=== PATIENT | male | born 1955 | race Caucasian/White ===

== ENCOUNTER 2021-04-24 19:24 | Inpatient (IN) | payer BC, SELFPAY ==
--- NOTE | ~2021-04-24 | MR_ITS ---
EXAMINATION: MR FOOT WITH AND WITHOUT CONTRAST, RIGHT CLINICAL INFORMATION: Nonhealing wound. COMPARISON: Radiographs dated 04/25/2021. TECHNIQUE: Multiplanar MR imaging was obtained through the right forefoot on a 1.5 Pratibha magnet before and after intravenous administration of 10 mL Gadavist. FINDINGS: There is a 1.7 x 1.7 cm skin wound at the plantar/medial margin of the great toe distal phalanx with surrounding soft tissue edema and enhancement. A peripherally enhancing tract extends from the wounds to the level of the medial margin of the great toe distal phalangeal base (image 33/40 of series 10). No peripherally enhancing collections in this region. There is intense underlying marrow edema signal within the distal phalanx with associated marrow enhancement. There is focal loss of normal T1 signal in the plantar/medial margin of the distal phalangeal base (image 33/40 of series 8), consistent with osteomyelitis. There is a transverse fracture at the second toe middle phalanx which is likely [id number] in nature given the edema signal at the margins. No additional fractures are identified. There is a bipartite medial hallux sesamoid with degenerated margins and mild associated edema signal. Mild osteoarthritis in the first MTP joint. Mild osteoarthritis is present within the tarsometatarsal joints. Marrow signal in the forefoot is otherwise unremarkable. There is fatty atrophy and increased signal within the foot musculature, consistent with chronic changes of denervation atrophy related to underlying diabetes. Tendons are intact without tears, tendinosis, or tenosynovitis. Plantar fascia is unremarkable. MR/MR foot RT wo/w con IMPRESSION: 1. Great toe skin wound with underlying osteomyelitis at the great toe distal phalanx. No abscess. 2. [id number] fracture of the second toe middle phalanx.
--- NOTE | ~2021-04-24 | XR_ITS ---
EXAMINATION: XR FOOT, RIGHT CLINICAL INFORMATION: Question osteomyelitis due to ulcer of the right great toe. COMPARISON: None TECHNIQUE: AP, lateral, and oblique views of the right foot. FINDINGS: Soft tissue ulceration along the medial aspect of the first digit. No underlying osseous erosion. There is an oblique fracture of the second digit middle phalanx with intra-articular extension. Mild soft tissue swelling throughout the foot. Small heel spurs. Vascular calcifications. XR/XR foot RT min 3V IMPRESSION: First digit ulcer with no underlying osseous erosion. Fracture of the second digit middle phalanx. This is of uncertain acuity.
[2021-04-24 19:35] VITALS: BP 171/95; PULSE 105; RESP 16; TEMP 37.2; O2SAT 96; BMI 31.8
--- NOTE | 2021-04-25 00:27 | ED_ITS ---
HPI - Wound/Laceration General Chief Complaint: Wound/Laceration Stated Complaint: toe ulcer Time Seen by Provider: 04/24/21 23:06 Source: patient Mode of arrival: ambulatory History of Present Illness HPI narrative: 65-year-old male with hypertension and diabetes presents after being referred by Dr. Valdovinos for nonhealing pressure ulcer to the right great toe and given likely osteomyelitis with patient reported swelling, pain, redness up into the base of the great toe. He otherwise denies any fever, chills and is COVID-19 vaccinated. Related Data Allergies Allergy/AdvReac Type Severity Reaction Status Date / Time No Known Allergies Allergy Verified 04/24/21 23:06 Review of Systems Review of Systems: Pertinent positives and negatives as stated in HPI 10 point review of systems is otherwise negative. [facility] Past Medical History Source: nursing notes reviewed Medical History Diabetes Hypertension Social History Social History Advance Directives: No Advance Directives Information Provided: No Physical Exam Vital Signs: Vital Signs: Last Vital Signs Temp 98.9 F 04/25/21 06:13 Pulse 68 04/25/21 06:13 Resp 16 04/25/21 06:13 BP 158/62 H 04/25/21 06:13 Pulse Ox 97 04/25/21 06:13 BMI result Body Mass Index 31.8 VITAL SIGNS: Reviewed. GENERAL: Well developed, well nourished, in no acute distress. HEAD: Normocephalic/atraumatic EYES: PERRLA, EOMI OROPHARYNX: no oral lesions noted, posterior pharynx clear NECK: Supple, no adenopathy LUNGS: Normal breath sounds. No adventitious sounds or accessory muscle use. SpO2<96> CARDIOVASCULAR: Regular rate and rhythm without noted murmurs, no JVD or lower extremity edema. ABDOMEN: Soft, non-tender, non-distended with bowel sounds. RIGHT GREAT TOE: Noted 2 cm ulceration, to the bone at the plantar aspect without purulence drainage but surrounding erythema, swelling that extends into the MTP NEUROLOGIC: Alert and oriented x 4. Strength and sensation to light touch were grossly intact x 4. Course Course Course Narrative: 65-year-old male with history and clinical presentation by clinical diagnosis of all when given depth of wound. Patient will get labs, inflammatory markers, antibiotics, COVID testing as well as an x-ray. Case discussed briefly with inpatient hospitalist. Patient received basic labs, x- ray, ESR, CRP, antibiotics. On review of all investigations CRP is elevated, no acute findings on x-ray, but wound is deep to bone, patient was provided with antibiotics and this case was discussed with inpatient hospitalist who accepts admission. MDM - Wound/Laceration Lab Data Result diagrams: 04/24/21 01:51 04/25/21 01:51 Labs: Lab Results 04/24/21 04/25/21 04/25/21 Range/Units 01:51 01:51 01:51 WBC 7.9 (4.8-10.8) X10*3/uL RBC 5.53 (4.60-5.80) X10*6/uL Hgb 15.4 (14.0-18.0) g/dl Hct 46.5 (42.0-52.0) % MCV 84.1 (80.0-98.0) fL MCH 27.8 (27.0-33.0) pg MCHC 33.1 (31.0-36.0) g/dl RDW 13.0 (11.0-16.0) % Plt Count 198 (160-400) X10*3/uL MPV 11.2 (9.4-12.4) fL Immature Gran % (Auto) 0.5 H (0.0-0.4) % Neut % (Auto) 70.0 (45-73) % Lymph % (Auto) 16.6 L (20-40) % [place] % (Auto) 8.2 (2-11) % Eos % (Auto) 4.1 H (0-4) % Baso % (Auto) 0.6 (0-2) % Lymph # (Auto) 1.3 (1.2-4.9) X10*3/uL [place] # (Auto) 0.7 (0.1-1.2) X10*3/uL Eos # (Auto) 0.3 (0.0-0.4) X10*3/uL Baso # (Auto) 0.1 (0.0-0.2) X10*3/uL Abs Immat Gran (auto) 0.04 H (0.00-0.03) X10*3/uL Absolute Neuts (auto) 5.5 (2.0-8.3) x10*3/uL Absolute Nucleated RBC 0.000 (0.0-0.012) X10*3/uL Nucleated RBC % (auto) 0.0 (0.0-0.2) /100WBC ESR (0-15) MM/HR Sodium 138 (135-145) mmol/L Potassium 4.3 (3.3-5.1) mmol/L Chloride 103 (96-108) mmol/L Carbon Dioxide 23 (22-29) mmol/L Anion Gap 16 (12-20) BUN 10 (9-16) mg/dL Creatinine 0.79 (0.5-1.4) mg/dL Estim Creat Clear Calc 127.8 Estimated GFR > 60 Random Glucose 189 H (60-115) mg/dL Lactic Acid 0.8 (0.5-2.0) mmol/L Calcium 9.9 (8.4-10.2) mg/dL Total Bilirubin 0.8 (0.0-1.0) mg/dL AST 13 (5-37) U/L ALT 18 (0-40) U/L Alkaline Phosphatase 137 H (39-117) U/L C-Reactive Protein 1.23 H (< or = 0.50) mg/dL Total Protein 7.5 (6.5-8.0) g/dL Albumin 4.6 (3.5-5.0) g/dL COVID-19 (LIZ) (Negative) COVID-19 Clin Com 04/25/21 04/25/21 Range/Units 01:51 01:54 WBC (4.8-10.8) X10*3/uL RBC (4.60-5.80) X10*6/uL Hgb (14.0-18.0) g/dl Hct (42.0-52.0) % MCV (80.0-98.0) fL MCH (27.0-33.0) pg MCHC (31.0-36.0) g/dl RDW (11.0-16.0) % Plt Count (160-400) X10*3/uL MPV (9.4-12.4) fL Immature Gran % (Auto) (0.0-0.4) % Neut % (Auto) (45-73) % Lymph % (Auto) (20-40) % [place] % (Auto) (2-11) % Eos % (Auto) (0-4) % Baso % (Auto) (0-2) % Lymph # (Auto) (1.2-4.9) X10*3/uL [place] # (Auto) (0.1-1.2) X10*3/uL Eos # (Auto) (0.0-0.4) X10*3/uL Baso # (Auto) (0.0-0.2) X10*3/uL Abs Immat Gran (auto) (0.00-0.03) X10*3/uL Absolute Neuts (auto) (2.0-8.3) x10*3/uL Absolute Nucleated RBC (0.0-0.012) X10*3/uL Nucleated RBC % (auto) (0.0-0.2) /100WBC ESR 12 (0-15) MM/HR Sodium (135-145) mmol/L Potassium (3.3-5.1) mmol/L Chloride (96-108) mmol/L Carbon Dioxide (22-29) mmol/L Anion Gap (12-20) BUN (9-16) mg/dL Creatinine (0.5-1.4) mg/dL Estim Creat Clear Calc Estimated GFR Random Glucose (60-115) mg/dL Lactic Acid (0.5-2.0) mmol/L Calcium (8.4-10.2) mg/dL Total Bilirubin (0.0-1.0) mg/dL AST (5-37) U/L ALT (0-40) U/L Alkaline Phosphatase (39-117) U/L C-Reactive Protein (< or = 0.50) mg/dL Total Protein (6.5-8.0) g/dL Albumin (3.5-5.0) g/dL COVID-19 (LIZ) Negative (Negative) COVID-19 Clin Com See Note Discharge Plan Discharge Clinical Impression: Osteomyelitis of great toe of right foot Patient Disposition: Admitted As Inpatient
[2021-04-25 05:40] LABS: Alanine Aminotransferase 18 U/L (0-40); Albumin Level 4.6 g/dL (3.5-5.0); Alkaline Phosphatase 137 U/L (39-117); Anion Gap 16 (12-20); Aspartate Amino Transferase 13 U/L (5-37); Bilirubin Total 0.8 mg/dL (0.0-1.0); Blood Urea Nitrogen 10 mg/dL (9-16); C Reactive Protein 1.23 mg/dL (< or = 0.50); Calcium 9.9 mg/dL (8.4-10.2); Carbon Dioxide 23 mmol/L (22-29); Chloride 103 mmol/L (96-108); Creatinine Clr Calc Pharmacy 127.8; Estimated Glomerular Filt Rate > 60; Glucose Random 189 mg/dL (60-115); Lactic Acid 0.8 mmol/L (0.5-2.0); Potassium 4.3 mmol/L (3.3-5.1); Sodium 138 mmol/L (135-145); Total Protein 7.5 g/dL (6.5-8.0)
[2021-04-25 05:40] LABS: Basophils Absolute Auto 0.1 X10*3/uL (0.0-0.2); Basophils Percent Auto 0.6 % (0-2); Eosinophils Absolute Auto 0.3 X10*3/uL (0.0-0.4); Eosinophils Percent Auto 4.1 % (0-4); Hematocrit 46.5 % (42.0-52.0); Hemoglobin 15.4 g/dl (14.0-18.0); Imm Gran Abs Auto 0.04 X10*3/uL (0.00-0.03); Imm Gran Pct Auto 0.5 % (0.0-0.4); Lymphocytes Absolute Auto 1.3 X10*3/uL (1.2-4.9); Lymphocytes Percent Auto 16.6 % (20-40); MANUAL DIFF FLAG NO; Mean Corpuscular HGB Conc 33.1 g/dl (31.0-36.0); Mean Corpuscular Hemoglobin 27.8 pg (27.0-33.0); Mean Corpuscular Volume 84.1 fL (80.0-98.0); Mean Platelet Volume 11.2 fL (9.4-12.4); Monocytes Absolute Auto 0.7 X10*3/uL (0.1-1.2); Monocytes Percent Auto 8.2 % (2-11); Neutrophils Absolute Auto 5.5 x10*3/uL (2.0-8.3); Platelet Count 198 X10*3/uL (160-400); Red Blood Count 5.53 X10*6/uL (4.60-5.80); White Blood Count 7.9 X10*3/uL (4.8-10.8)
[2021-04-25 05:51] LABS: COVID-19 Test Negative (Negative)
[2021-04-25 05:53] LABS: Erythrocyte Sedimentation Rate 12 MM/HR (0-15)
[2021-04-25 06:13] VITALS: BP 158/62; PULSE 68; RESP 16; TEMP 37.2; O2SAT 97
--- NOTE | 2021-04-25 06:27 | P.HPHOSP_ITS ---
History of Present Illness Date of Service: 04/25/21 Chief Complaint: Foot ulcer 65-year-old male with past medical history of diabetes and hypertension who presents to the hospital with complaints of nonhealing right foot base ulcer. Patient reports that he initially had bruising around his 2nd MTP but then deve loped a small ulcer at the base of the 1st big toe that has now developed into a nonhealing wound. He went to his reconciliation accountant today, who recommended that he comes to the ED for further evaluation. Patient reports that he was following up with his reconciliation accountant and was using topical ointment but the wound was not healing. He has minimal drainage with no fever or chills, mild tenderness at the base of the foot, has history of neuropathy. denies any palpitations or chest pain, no shortness of breath, no headache or change in vision, no abdominal pain nausea or vomiting, no diarrhea constipation, no urinary symptoms and no lower extremity edema. No weakness numbness or tingling. On arrival to the ED patient hemodynamically stable with no significant abnormal vitals except for an elevated blood pressure of 171/95 Labs are significant for ESR of 12, CRP of 1.23, CBC pending due to downtime w ith the system Foot x-ray shows 1st digit ulcer with underlying osseous erosion, fracture of the 2nd digit middle phalanx Patient will be admitted for evaluation by Infectious Disease and possible need for MRI to rule out osteomyelitis Review of Systems Review of Systems: Yes all other systems are reviewed and are negative [facility] Medical History (Updated 04/25/21 @ 06:36 by David Avalos MD) Diabetes Hypertension Family History (Updated 04/25/21 @ 06:34 by David Avalos MD) Other Diabetes Pertinent family history: No family history of coronary artery disease Surgical History (Updated 04/25/21 @ 06:35 by David Avalos MD) Hx of [facility] Social History (Updated 04/25/21 @ 06:35 by David Avalos MD) Alcohol intake: current Patient Tobacco Use Status: Former Tobacco user Use of substances other than those prescribed or required for medical reasons: No Advance Directives: No Advance Directives Information Provided: No Meds Allergies Allergy/AdvReac Type Severity Reaction Status Date / Time codeine Allergy Unknown Verified 04/25/21 06:38 Active Medications: Current Medications Acetaminophen (Acetaminophen 325 Mg Tablet) 650 mg PO Q6H PRN PRN Reason: Pain, Mild (Pain Scale 1-3) Docusate Sodium (Docusate Sodium 100 Mg Capsule) 100 mg PO DAILY PRN PRN Reason: Constipation Enoxaparin Sodium (Enoxaparin Sodium 40 Mg/0.4 Ml Syringe) 40 mg SUBCUT Q24H FLORA Piperacillin Sod/Tazobactam (Sod 3.375 gm/ Sodium Chloride) 50 mls @ 100 mls/hr IV Q6H FLORA Vancomycin HCl 1,500 mg/ (Sodium Chloride) 500 mls @ 333.333 mls/hr IV Q12H [place]ORA Ondansetron HCl (Ondansetron Hcl 4 Mg/2 Ml Vial) 4 mg IVPUSH Q8H PRN PRN Reason: Nausea and Vomiting Pharmacy Consult (Consult Rx Perform Med Rec) 1 each MISCELLANE ONCE PRN PRN Reason: Consult order Pharmacy Consult (Consult Rx Vancomycin Dosing) 1 each MISCELLANE DAILY PRN PRN Reason: Consult order Sodium Chloride (0.9 % Sodium Chloride Flush 3 Ml Syringe) 3 ml IVFLUSH QSHIFT [facility] Physical Exam Vital Signs and Narrative: Vital Signs: Last Vital Signs Temp 98.9 F 04/25/21 06:13 Pulse 68 04/25/21 06:13 Resp 16 04/25/21 06:13 BP 158/62 H 04/25/21 06:13 Pulse Ox 97 04/25/21 06:13 BMI result Body Mass Index 31.8 Const: General: cooperative and no acute distress Orientation/consciou sness: patient oriented x3 Eyes: General: appearance normal, both eyes and all related structures Resp: Effort & Inspection: normal respiratory effort Auscultation: clear to auscultation bilaterally Cardio: Rate: regular rate Rhythm: regular rhythm GI: Palpation (GI): Soft to palpation Auscultation: normal bowel sounds Skin: General skin exam: no rashes or lesions noted Neuro: General: patient oriented x3 Cognition (Neuro): normal cognition Extrem: Other: Has a foot ulcer at the base of the 1st right toe ( big toe) , nondraining, mildly tender on palpation, no significant erythema General: Yes no pedal edema Results Labs CBC and Chem 7: 04/24/21 01:51 04/25/21 01:51 Labs: Laboratory Results - last 24 hr 04/24/21 04/25/21 04/25/21 01:51 01:51 01:51 MCV 84.1 MCH 27.8 MCHC 33.1 RDW 13.0 Plt Count 198 MPV 11.2 Immature Gran % (Auto) 0.5 H Neut % (Auto) 70.0 Lymph % (Auto) 16.6 L [place] % (Auto) 8.2 Eos % (Auto) 4.1 H Baso % (Auto) 0.6 Lymph # (Auto) 1.3 [place] # (Auto) 0.7 Eos # (Auto) 0.3 Baso # (Auto) 0.1 Abs Immat Gran (auto) 0.04 H Absolute Neuts (auto) 5.5 Absolute Nucleated RBC 0.000 Nucleated RBC % (auto) 0.0 ESR Anion Gap 16 Estim Creat Clear Calc 127.8 Estimated GFR > 60 Random Glucose 189 H Lactic Acid 0.8 Calcium 9.9 Total Bilirubin 0.8 AST 13 ALT 18 Alkaline Phosphatase 137 H C-Reactive Protein 1.23 H Total Protein 7.5 Albumin 4.6 COVID-19 (LIZ) COVID-19 Clin Com 04/25/21 04/25/21 01:51 01:54 MCV MCH MCHC RDW Plt Count MPV Immature Gran % (Auto) Neut % (Auto) Lymph % (Auto) [place] % (Auto) Eos % (Auto) Baso % (Auto) Lymph # (Auto) [place] # (Auto) Eos # (Auto) Baso # (Auto) Abs Immat Gran (auto) Absolute Neuts (auto) Absolute Nucleated RBC Nucleated RBC % (auto) ESR 12 Anion Gap Estim Creat Clear Calc Estimated GFR Random Glucose Lactic Acid Calcium Total Bilirubin AST ALT Alkaline Phosphatase C-Reactive Protein Total Protein Albumin COVID-19 (LIZ) Negative COVID-19 Clin Com See Note Imaging Radiologist's Impressions: Impressions Foot X-Ray 04/25/21 00:35 IMPRESSION: First digit ulcer with no underlying osseous erosion. Fracture of the second digit middle phalanx. This is of uncertain acuity. Assessment and Plan (1) Diabetic foot ulcer: Status: Acute 65-year-old man with past medical history of diabetes and hypertension who presents to the hospital with nonhealing diabetic foot ulcer # diabetic foot ulcer - will need to rule out osteomyelitis - has slightly elevated ESR and CRP - will obtain MRI in a - infectious disease consult as well as general surgery consult for possible I&D - IV antibiotic - follow culture # diabetes - will start low-dose sliding scale insulin - diabetic diet # HTN - elevated - pending med review DVT ppx: lovenox Quality Stroke Does the patient have a stroke diagnosis?: No VTE Prior VTE?: No VTE Risk Level:: Medical - moderate - high VTE Device Contraindication: Treatment Not Indicated VTE Drug Contraindication: N/A - Med Ordered
[2021-04-25 07:05] VITALS: BP 153/94; PULSE 88; RESP 16; TEMP 36.7; O2SAT 97
--- NOTE | 2021-04-25 07:13 | PHA.PROG ---
Admission Date/Time: April 25, 2021 05:59 Indication: bone and joint infection Weight in k.666 kg Adjusted body weight in K kg [place] body weight in K.5 kg Obesity Dosing Indication % IBW: Serum Creatinine - Last 168 Hours 04/25/21 01:51 Creatinine 0.79 Estimated CrCl and GFR - Last 168 Hours 04/25/21 01:51 Estim Creat Clear Calc 127.8 Estimated GFR > 60 Vancomycin Loading Dose: Current Vancomycin Dosing Regimen: 1250 mg q12h Vancomycin Monitoring using AUC goal of 400 - 600 range with trough as surrogate marker: predicted AUC 452 Date and Time for next Vancomycin Level to be drawn: 04/26/21 @1800 Pharmacist Comments on Vancomycin Plan: Vancomycin dosing will take advantage of [employer] as a clinical decision support tool that uses Bayesian modeling to calculate individual patient's pharmacokinetic parameters and forecast the patient's drug concentration time course with the target goal AUC 24 range of 400 - 600 mg/L/hr.
[2021-04-25 07:32] LABS: Glucose, Whole Blood 143 mg/dL (60-115)
[2021-04-25] MEDS: vancomycin HCL 1,250 MG in 0.9 % Sodium Chloride 250 ML 166.67 MG IV ×2 (07:39→20:45)
[2021-04-25] MEDS: Enoxaparin Sodium 40 MG/0.4 ML SYRINGE SUBCUT (07:40)
[2021-04-25 08:32] LABS: MANUAL DIFF FLAG NO
[2021-04-25 08:38] LABS: Basophils Absolute Auto 0.1 X10*3/uL (0.0-0.2); Basophils Percent Auto 0.9 % (0-2); Eosinophils Absolute Auto 0.3 X10*3/uL (0.0-0.4); Eosinophils Percent Auto 4.5 % (0-4); Hematocrit 44.3 % (42.0-52.0); Hemoglobin 14.4 g/dl (14.0-18.0); Imm Gran Abs Auto 0.03 X10*3/uL (0.00-0.03); Imm Gran Pct Auto 0.4 % (0.0-0.4); Lymphocytes Absolute Auto 1.4 X10*3/uL (1.2-4.9); Lymphocytes Percent Auto 18.7 % (20-40); Mean Corpuscular HGB Conc 32.5 g/dl (31.0-36.0); Mean Corpuscular Hemoglobin 27.3 pg (27.0-33.0); Mean Corpuscular Volume 83.9 fL (80.0-98.0); Mean Platelet Volume 11.3 fL (9.4-12.4); Monocytes Absolute Auto 0.6 X10*3/uL (0.1-1.2); Monocytes Percent Auto 8.2 % (2-11); Neutrophils Absolute Auto 5.1 x10*3/uL (2.0-8.3); Neutrophils Percent Auto 67.3 % (45-73); Platelet Count 175 X10*3/uL (160-400); Red Blood Count 5.28 X10*6/uL (4.60-5.80); White Blood Count 7.6 X10*3/uL (4.8-10.8)
--- NOTE | 2021-04-25 08:38 | MHC.CM.PN ---
pt lives c his in their home. 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 his is willing an able to help him c any needs he may have, she has been helping him c drsg changes to his foot and will provide transportation at in. pt denies the need for vna at in. he does not use any AD c ambulation and does not have any svcs in the home. pt may need a note for his employer he says. dc plan is home no svcs. cm to cont. to follow.
--- NOTE | 2021-04-25 08:44 | PHA.MEDREC ---
Pharmacy Consult ? Medication Reconciliation Pharmacy has completed the medication reconciliation.
[2021-04-25 08:56] LABS: Anion Gap 14 (12-20); Blood Urea Nitrogen 8 mg/dL (9-16); Calcium 9.1 mg/dL (8.4-10.2); Carbon Dioxide 24 mmol/L (22-29); Chloride 102 mmol/L (96-108); Creatinine Clr Calc Pharmacy 136.4; Estimated Glomerular Filt Rate > 60; Glucose Random 214 mg/dL (60-115); Potassium 4.6 mmol/L (3.3-5.1); Sodium 135 mmol/L (135-145)
[2021-04-25] MEDS: Piperacillin Sodium/Tazobactam 3.375 GM in 0.9 % Sodium Chloride 50 ML IV ×3 (10:09→22:35)
[2021-04-25 11:47] LABS: Glucose, Whole Blood 158 mg/dL (60-115)
--- NOTE | 2021-04-25 11:56 | PC.NURSE ---
This rn assumed care of the pt at 11am - Zosyn from 3:05 AM was not administered. Notified pharmacy. documented against 3:05AM medication
[2021-04-25] MEDS: Insulin Lispro 100 UNIT/ML 3 ML VIAL SUBCUT ×3 (13:19→22:34)
--- NOTE | 2021-04-25 13:26 | P.CONGS_ITS ---
History of Present Illness Consult details Consult date: 04/25/21 Narrative: 65-year-old male patient with history of diabetes presenting with a nonhealing wound of the base of the right foot at the great toe. He reports an injury to the right foot approximately 3 weeks ago when getting up to go to the bathroom. He developed bruising of the 2nd toe with associated swelling and subsequently developed an open wound. He been evaluated by his scientist propagator and was dressing the wound with topical ointment. He was subsequently sent to the emergency department due to worsening of the wound. He reports some mild discomfort associated with the ulcer denies fever or chills. He reports his glucose levels have been between 150 and 250. He denies previous foot surgery or vascular surgery. He denies claudication symptoms but does report sensation his feet being cold. This improves when he is walking. He denies previous foot ulceration. A foot x-ray performed in the emergency department revealed a fracture at the 2nd toe middle phalanx of unknown age. No osseous erosion is identified to indicate osteomyelitis. He is admitted to the medical service for IV antibiotics and is scheduled for a foot MRI. 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 He reports working 7 days a week, 8 hours a day. Review of Systems Review of Systems: Yes all other systems are reviewed and are negative Constitutional: Constitutional: Denies chills, Denies fever(s) and Denies night sweats ENT: Denies sore throat and Denies throat swelling Cardiovascular: Cardiovascular: Denies chest pain, Denies Epigastric Pain and Denies irregular heart rhythm Respiratory: Respiratory: Denies chest congestion, Denies cough and Denies wheezing Gastrointestinal: Gastrointestinal: Reports no additional gastrointestinal complaints Musculoskeletal: Musculoskeletal: Reports as per HPI Hematologic/Lymphatic: Hematologic/Lymphatic: Denies lymphadenopathy Allergic/Immunologic: Allergic/Immunologic: Denies throat swelling and Denies wheezing PMF Past Medical History Medical History Diabetes Hypertension Family History Family History Other Diabetes Surgical History Surgical History [facility] Social History Social History Alcohol intake: current Patient Tobacco Use Status: Former Tobacco user Use of substances other than those prescribed or required for medical reasons: No Advance Directives: No Advance Directives Information Provided: No service: No Current occupational status: employed Meds Allergies Allergy/AdvReac Type Severity Reaction Status Date / Time codeine Allergy Unknown Verified 04/25/21 06:38 Active Medications: Current Medications Acetaminophen (Acetaminophen 325 Mg Tablet) 650 mg PO Q6H PRN PRN Reason: Pain, Mild (Pain Scale 1-3) Atorvastatin Calcium (Atorvastatin Calcium 80 Mg Tablet) 80 mg PO DAILY [facility] Dextrose (Dextrose 50 % 25 Gm/50 Ml Vial) 25 gm IVPUSH Q15M PRN; Protocol PRN Reason: per Hypoglycemia Standing Ord. Diltiazem HCl (Diltiazem Hcl Cd 300 Mg Cap.Er.24h) 300 mg PO DAILY [facility]; Protocol Docusate Sodium (Docusate Sodium 100 Mg Capsule) 100 mg PO DAILY PRN PRN Reason: Constipation Enoxaparin Sodium (Enoxaparin Sodium 40 Mg/0.4 Ml Syringe) 40 mg SUBCUT Q24H [facility] Last Admin: 04/25/21 07:40 Dose: 40 mg Documented by: Glucose (Glucose Gel 15 Gm Gel..Gram.) 15 gm PO Q15M PRN; Protocol PRN Reason: per Hypoglycemia Standing Ord. Piperacillin Sod/Tazobactam (Sod 3.375 gm/ Sodium Chloride) 50 mls @ 100 mls/hr IV Q6H [facility] Last Infusion: 04/25/21 10:52 Dose: Infused Documented by: Vancomycin HCl 1,250 mg/ (Sodium Chloride) 250 mls @ 166.667 mls/hr IV Q12H [facility] Last Infusion: 04/25/21 10:09 Dose: Infused Documented by: Insulin Human Lispro (Insulin Lispro 100 Unit/Ml 3 Ml Vial) 0 unit SUBCUT QIDACHS [facility]; Protocol Last Admin: 04/25/21 13:19 Dose: 2 unit Documented by: Lisinopril (Lisinopril 10 Mg Tablet) 30 mg PO DAILY [facility]; Protocol Ondansetron HCl (Ondansetron Hcl 4 Mg/2 Ml Vial) 4 mg IVPUSH Q8H PRN PRN Reason: Nausea and Vomiting Pharmacy Consult (Consult Rx Perform Med Rec) 1 each MISCELLANE ONCE PRN PRN Reason: Consult order Pharmacy Consult (Consult Rx Vancomycin Dosing) 1 each MISCELLANE DAILY PRN PRN Reason: Consult order Sodium Chloride (0.9 % Sodium Chloride Flush 3 Ml Syringe) 3 ml IVFLUSH QSHIFT [facility] Last Admin: 04/25/21 07:40 Dose: Not Given Documented by: Home Medications Medication Instructions Recorded Confirmed Last Taken Type atorvastatin 80 mg tablet 1 tab PO DAILY 04/25/21 04/25/21 04/23/21 History dapagliflozin 10 mg-metformin ER 1 tab PO DAILY 04/25/21 04/25/21 04/23/21 History 1,000 mg tablet,extended release 24hr (Xigduo XR) diltiazem HCl 300 mg 1 cap PO DAILY 04/25/21 04/25/21 04/23/21 History capsule,extended release 24 hr lisinopril 30 mg tablet 1 tab PO DAILY 04/25/21 04/25/21 04/23/21 History Physical Exam Vital Signs: Vital Signs: Last Vital Signs Temp 98.1 F 04/25/21 07:05 Pulse 88 04/25/21 07:05 Resp 16 04/25/21 07:05 BP 153/94 H 04/25/21 07:05 Pulse Ox 97 04/25/21 07:05 BMI result Body Mass Index 31.8 Const: General: cooperative, no acute distress and well developed Nutritional Appearance: well nourished Orientation/consciousness: patient oriented x3 Limitations: no limitations HENMT: Head: Yes normocephalic and Yes atraumatic Ears: hearing grossly normal bilaterally Neck: Neck: Yes no lymphadenopathy and Yes trachea midline Resp: Effort & Inspection: normal respiratory effort, no audible wheezes, no cough and no respiratory distress GI: Inspection: Yes normal to inspection Skin: General skin exam: no rashes or lesions noted, dry skin, no ecchymosis and erythema Neuro: General: patient oriented x3 Extrem: Other: Right great toe base, plantar surface the stellate type ulceration with no surrounding callus and some granulation tissue noted at the base. No surrounding erythema. No edema noted in hardin. No evidence of an underlying abscess. Ankle/foot/toe images: 1. Area of ulceration Results Labs Result diagrams: 04/25/21 08:11 04/25/21 08:11 Labs: Abnormal lab results 04/24/21 04/25/21 04/25/21 Range/Units 01:51 01:51 07:16 Immature Gran % (Auto) 0.5 H (0.0-0.4) % Lymph % (Auto) 16.6 L (20-40) % Eos % (Auto) 4.1 H (0-4) % Abs Immat Gran (auto) 0.04 H (0.00-0.03) X10*3/uL BUN (9-16) mg/dL POC Glucose 143 H (60-115) mg/dL Random Glucose 189 H (60-115) mg/dL Alkaline Phosphatase 137 H (39-117) U/L C-Reactive Protein 1.23 H (< or = 0.50) mg/dL 04/25/21 04/25/21 04/25/21 Range/Units 08:11 08:11 11:43 Immature Gran % (Auto) (0.0-0.4) % Lymph % (Auto) 18.7 L (20-40) % Eos % (Auto) 4.5 H (0-4) % Abs Immat Gran (auto) (0.00-0.03) X10*3/uL BUN 8 L (9-16) mg/dL POC Glucose 158 H (60-115) mg/dL Random Glucose 214 H (60-115) mg/dL Alkaline Phosphatase (39-117) U/L C-Reactive Protein (< or = 0.50) mg/dL Short CBC 04/24/21 04/25/21 Range/Units 01:51 08:11 WBC 7.9 7.6 (4.8-10.8) X10*3/uL Hgb 15.4 14.4 (14.0-18.0) g/dl Hct 46.5 44.3 (42.0-52.0) % Plt Count 198 175 (160-400) X10*3/uL BMP 04/25/21 04/25/21 01:51 08:11 Sodium 138 135 Potassium 4.3 4.6 Chloride 103 102 Carbon Dioxide 23 24 BUN 10 8 L Creatinine 0.79 0.74 Calcium 9.9 9.1 D Liver Function 04/25/21 Range/Units 01:51 Total Bilirubin 0.8 (0.0-1.0) mg/dL AST 13 (5-37) U/L ALT 18 (0-40) U/L Alkaline Phosphatase 137 H (39-117) U/L Albumin 4.6 (3.5-5.0) g/dL All other labs normal. RT Foot: second toe MP fracture Assessment and Plan (1) Diabetic foot ulcer: Status: Acute 65-year-old male patient with history of diabetes mellitus presenting of a nonhealing ulcer of the right great toe. Findings are suggestive of osteomyelitis however no osseous changes are noted on the plain x-ray. Agree with MRI of the foot to evaluate for osteomyelitis. No abscess is appreciated and no need for debridement/incision and drainage at this time. Arterial studies to evaluate for vascular disease is suggested. I will follow along with you. Procedures Date of Service Date of Service: 04/25/21
--- NOTE | 2021-04-25 13:51 | PC.NURSE ---
call placed to pharmacy for diltiazem
[2021-04-25 14:07] VITALS: BP 153/94; PULSE 88
[2021-04-25] MEDS: dilTIAZem HCL CD 300 MG CAP.ER.24H PO (14:07)
[2021-04-25 14:51] VITALS: BP 133/82; PULSE 92; RESP 14; TEMP 36.1; O2SAT 96
[2021-04-25] MEDS: 0.9 % Sodium Chloride Flush 3 ML SYRINGE IVFLUSH (17:48)
[2021-04-25 18:06] LABS: Glucose, Whole Blood 168 mg/dL (60-115)
[2021-04-25 21:32] LABS: Glucose, Whole Blood 280 mg/dL (60-115)
[2021-04-25 22:51] VITALS: PULSE 76; RESP 16; O2SAT 94
[2021-04-26 05:01] VITALS: RESP 14
[2021-04-26 06:29] LABS: Hematocrit 43.6 % (42.0-52.0); Hemoglobin 14.4 g/dl (14.0-18.0); Mean Corpuscular Hemoglobin 27.5 pg (27.0-33.0); Mean Corpuscular Volume 83.2 fL (80.0-98.0); Mean Platelet Volume 10.8 fL (9.4-12.4); Platelet Count 191 X10*3/uL (160-400); Red Blood Count 5.24 X10*6/uL (4.60-5.80); Red Cell Distribution Width 12.8 % (11.0-16.0); White Blood Count 7.4 X10*3/uL (4.8-10.8)
[2021-04-26 06:44] LABS: Anion Gap 11 (12-20); Blood Urea Nitrogen 10 mg/dL (9-16); Calcium 9.3 mg/dL (8.4-10.2); Carbon Dioxide 25 mmol/L (22-29); Chloride 106 mmol/L (96-108); Creatinine Clr Calc Pharmacy 148.5; Estimated Glomerular Filt Rate > 60; Glucose Random 182 mg/dL (60-115); Potassium 4.3 mmol/L (3.3-5.1); Sodium 138 mmol/L (135-145)
[2021-04-26 07:34] LABS: Glucose, Whole Blood 170 mg/dL (60-115)
[2021-04-26] MEDS: Insulin Lispro 100 UNIT/ML 3 ML VIAL SUBCUT ×2 (07:54→13:13)
[2021-04-26] MEDS: Piperacillin Sodium/Tazobactam 3.375 GM in 0.9 % Sodium Chloride 50 ML IV ×3 (07:57→22:40)
[2021-04-26] MEDS: Atorvastatin Calcium 80 MG TABLET PO (08:01)
[2021-04-26] MEDS: lisinopriL 10 MG TABLET 30 MG PO (08:01)
[2021-04-26] MEDS: Enoxaparin Sodium 40 MG/0.4 ML SYRINGE SUBCUT (08:02)
[2021-04-26] MEDS: vancomycin HCL 1,250 MG in 0.9 % Sodium Chloride 250 ML 125 MG IV (08:02)
[2021-04-26] MEDS: 0.9 % Sodium Chloride Flush 3 ML SYRINGE IVFLUSH (08:02)
[2021-04-26 08:21] VITALS: BP 135/81; PULSE 93; RESP 16; O2SAT 97
[2021-04-26] MEDS: dilTIAZem HCL CD 300 MG CAP.ER.24H PO (08:25)
--- NOTE | 2021-04-26 08:41 | PC.NURSE ---
Pt awake, A&Ox3, LCA, no complaints of pain at this time. Wound to L great toe wrapped. Awaiting MRI results, medicated as per [facility] orders with IV antibiotics. Call ballesteros within reach. Will continue to monitor. VS as charted.
--- NOTE | 2021-04-26 09:26 | P.CDIC_ITS ---
CDI Concurrent Query Documentation Clarification: PHYSICIAN'S DOCUMENTATION REQUEST Date of Query: 04/26/21926 Patient Name: Miki Mattson Admit Date: 04/25/21 Dear Doctor, A review of the medical record indicates additional documentation may be needed. Please review below and update the documentation accordingly. Clinical Indicators: Risk Factors/Clinical Indicators/Treatments Diabetic foot ulcer, wound deep to the bone. Insulin/antibiotics. Random glucose - 214 H POC glucose - 280 H Please clarify the following regarding Diabetes Mellitus (DM): Type/Etiology: * Type I DM * Type II DM * Other type * Unable to determine Complications of DM: * Hypoglycemia * Hyperglycemia * Other * Unable to determine Use of terms such as suspected, likely, concern for, or probable (associated with a specific diagnosis that is being evaluated, monitored, or treated as if it exists) are acceptable and can be coded in the inpatient setting, when documented at the time of discharge. Thank you, Ana Cristina Quinteros [facility], CDIS Extension: [phone] Please use your independent medical judgment in providing your response. THIS QUERY IS PART OF THE PERMANENT MEDICAL RECORD Provider Response: Other Other Diagnosis: Type 2 Diabetes w hyperglycemia
--- NOTE | 2021-04-26 11:29 | HO.PM.IMPN ---
Subjective Subjective Date of Service: 04/26/21 Interval History: the patient was seen and evaluated this morning Laying in bed, feels little better No drainage from the wound Denies any fever, chills or shortness of breath No reported other overnight events. Systemic review: No fever, chills or weakness No chest pain, palpitation No shortness of breath or coughing No abdominal pain, nausea or vomiting No urinary symptoms Lower extremity wound Physical Exam Vital Signs: Vital Signs: Last Vital Signs Temp 97.0 F 04/25/21 14:51 Pulse 93 04/26/21 08:21 Resp 16 04/26/21 08:21 BP 135/81 04/26/21 08:21 Pulse Ox 97 04/26/21 08:21 BMI result Body Mass Index 31.8 Const: Other: Constitutional : Alert, oriented, not in distress Neck : Normal inspection, Supple Cardiovascular : RRR, S1 S2, no lower extremity edema Respiratory : Good bilateral air entry, no crackles, wheezes or rhonchi Gastrointestinal: soft, lax, Normal bowel sounds, Non tender Skin : Warm, Dry, foot ulcer at the base of the right big toe , nondraining, mildly tender on palpation, no significant erythema Neurological : Alert & oriented x3, No focal deficit Objective Data Active Medications Acetaminophen (Acetaminophen 325 Mg Tablet) 650 mg PO Q6H PRN PRN Reason: Pain, Mild (Pain Scale 1-3) Atorvastatin Calcium (Atorvastatin Calcium 80 Mg Tablet) 80 mg PO DAILY [facility] Last Admin: 04/26/21 08:01 Dose: 80 mg Documented by: MARYBETH Dextrose (Dextrose 50 % 25 Gm/50 Ml Vial) 25 gm IVPUSH Q15M PRN; Protocol PRN Reason: per Hypoglycemia Standing Ord. Diltiazem HCl (Diltiazem Hcl Cd 300 Mg Cap.Er.24h) 300 mg PO DAILY [facility]; Protocol Last Admin: 04/26/21 08:25 Dose: 300 mg Documented by: MARYBETH Docusate Sodium (Docusate Sodium 100 Mg Capsule) 100 mg PO DAILY PRN PRN Reason: Constipation Enoxaparin Sodium (Enoxaparin Sodium 40 Mg/0.4 Ml Syringe) 40 mg SUBCUT Q24H [facility] Last Admin: 04/26/21 08:02 Dose: 40 mg Documented by: MARYBETH Glucose (Glucose Gel 15 Gm Gel..Gram.) 15 gm PO Q15M PRN; Protocol PRN Reason: per Hypoglycemia Standing Ord. Piperacillin Sod/Tazobactam (Sod 3.375 gm/ Sodium Chloride) 50 mls @ 100 mls/hr IV Q6H [facility] Last Infusion: 04/26/21 08:33 Dose: 0 mls/hr Documented by: MARYBETH Vancomycin HCl 1,250 mg/ (Sodium Chloride) 250 mls @ 166.667 mls/hr IV Q12H [facility] Last Admin: 04/26/21 08:02 Dose: 125 mls/hr Documented by: MARYBETH Insulin Human Lispro (Insulin Lispro 100 Unit/Ml 3 Ml Vial) 0 unit SUBCUT QIDACHS [facility]; Protocol Last Admin: 04/26/21 07:54 Dose: 1 unit Documented by: MARYBETH Lisinopril (Lisinopril 10 Mg Tablet) 30 mg PO DAILY [facility]; Protocol Last Admin: 04/26/21 08:01 Dose: 30 mg Documented by: MARYBETH Ondansetron HCl (Ondansetron Hcl 4 Mg/2 Ml Vial) 4 mg IVPUSH Q8H PRN PRN Reason: Nausea and Vomiting Pharmacy Consult (Consult Rx Perform Med Rec) 1 each MISCELLANE ONCE PRN PRN Reason: Consult order Pharmacy Consult (Consult Rx Vancomycin Dosing) 1 each MISCELLANE DAILY PRN PRN Reason: Consult order Sodium Chloride (0.9 % Sodium Chloride Flush 3 Ml Syringe) 3 ml IVFLUSH QSHIFT [facility] Last Admin: 04/26/21 08:02 Dose: 3 ml Documented by: MARYBETH Labs CBC & Chem 7: 04/26/21 06:16 04/26/21 06:16 Labs: Laboratory Results - last 24 hr 04/25/21 04/25/21 04/25/21 11:43 18:03 21:29 MCV MCH MCHC RDW Plt Count MPV Absolute Nucleated RBC Nucleated RBC % (auto) Anion Gap Estim Creat Clear Calc Estimated GFR POC Glucose 158 H 168 H 280 H Random Glucose Calcium 04/26/21 04/26/21 04/26/21 06:16 06:16 07:28 MCV 83.2 MCH 27.5 MCHC 33.0 RDW 12.8 Plt Count 191 MPV 10.8 Absolute Nucleated RBC 0.000 Nucleated RBC % (auto) 0.0 Anion Gap 11 L Estim Creat Clear Calc 148.5 Estimated GFR > 60 POC Glucose 170 H Random Glucose 182 H Calcium 9.3 Microbiology Microbiology Results: Microbiology 04/25/21 01:51 Blood Culture - Preliminary Blood - Venous No growth after 24 hours. 04/25/21 01:51 Blood Culture - Preliminary Blood - Venous No growth after 24 hours. Assessment and Plan (1) Diabetic foot ulcer: Status: Acute (2) Osteomyelitis of great toe of right foot: Status: Acute Assessment and Plan: 65-year-old man with past medical history of diabetes and hypertension who presents to the hospital with nonhealing diabetic foot ulcer # osteomyelitis big toe, right # diabetic foot infection MRI confirmed diagnosis of osteomyelitis Id and surgery consult Continue IV antibiotic Pending final culture To place a PICC line by tomorrow for long-term IV antibiotics # type 2 diabetes with hyperglycemia Continue low-dose sliding scale insulin diabetic diet # HTN Continue diltiazem and lisinopril DVT ppx lovenox Quality Stroke Does the patient have a stroke diagnosis?: No VTE Prior VTE?: No VTE Risk Level:: Medical - moderate - high VTE Device Contraindication: Treatment Not Indicated VTE Drug Contraindication: N/A - Med Ordered
--- NOTE | 2021-04-26 11:56 | PC.NURSE ---
Pt OOB to BR independantly, no complaints of pain.
[2021-04-26 12:52] LABS: Glucose, Whole Blood 193 mg/dL (60-115)
[2021-04-26 16:00] VITALS: BP 141/80; PULSE 80; RESP 16; TEMP 36.5; O2SAT 98
[2021-04-26 17:14] LABS: Glucose, Whole Blood 263 mg/dL (60-115)
--- NOTE | 2021-04-26 18:04 | PC.NURSE ---
Pt refusing insulin coverage at this time, states with the small amount of units whats the point. OOB to BR independantly. No complaints of pain, A&Ox3. Awaiting bed assignment. Will continue to monitor.
[2021-04-26 20:14] VITALS: BP 138/68; PULSE 72; RESP 16; TEMP 36.3; O2SAT 99
[2021-04-26 20:19] LABS: Vancomycin Trough 6.9 mcg/mL (10.0-20.0)
[2021-04-26 21:02] LABS: Glucose, Whole Blood 287 mg/dL (60-115)
[2021-04-26] MEDS: traZODone HCL 25 MG HALFTAB PO (22:39)
[2021-04-26] MEDS: vancomycin HCL 1,500 MG in 0.9 % Sodium Chloride 500 ML 333.33 MG IV (22:45)
[2021-04-26 23:51] VITALS: BP 130/79; PULSE 80; RESP 18; TEMP 36.9; O2SAT 93
[2021-04-27] MEDS: 0.9 % Sodium Chloride Flush 3 ML SYRINGE IVFLUSH ×4 (00:33→20:53)
[2021-04-27] MEDS: Piperacillin Sodium/Tazobactam 3.375 GM in 0.9 % Sodium Chloride 50 ML IV ×4 (03:06→22:34)
[2021-04-27 03:48] VITALS: BP 122/68; PULSE 80; RESP 18; TEMP 36.9; O2SAT 97
[2021-04-27 06:31] LABS: Anion Gap 13 (12-20); Blood Urea Nitrogen 12 mg/dL (9-16); Calcium 9.1 mg/dL (8.4-10.2); Carbon Dioxide 23 mmol/L (22-29); Chloride 105 mmol/L (96-108); Creatinine Clr Calc Pharmacy 140.2; Estimated Glomerular Filt Rate > 60; Glucose Random 208 mg/dL (60-115); Potassium 4.3 mmol/L (3.3-5.1); Sodium 137 mmol/L (135-145)
[2021-04-27 07:28] VITALS: BP 125/77; PULSE 78; RESP 17; TEMP 36.1; O2SAT 97
[2021-04-27 07:48] LABS: Glucose, Whole Blood 213 mg/dL (60-115)
[2021-04-27] MEDS: lisinopriL 10 MG TABLET 30 MG PO (08:14)
[2021-04-27] MEDS: Atorvastatin Calcium 80 MG TABLET PO (08:14)
[2021-04-27] MEDS: dilTIAZem HCL CD 300 MG CAP.ER.24H PO (08:14)
[2021-04-27] MEDS: Enoxaparin Sodium 40 MG/0.4 ML SYRINGE SUBCUT (08:14)
[2021-04-27] MEDS: Insulin Lispro 100 UNIT/ML 3 ML VIAL SUBCUT ×4 (08:15→20:52)
--- NOTE | 2021-04-27 08:53 | PM.PNGS ---
Subjective Subjective Date of Service: 04/27/21 Interval history: Patient with no new complaints, denies foot pain Physical Exam Vital Signs: Vital Signs: Last Vital Signs Temp 97.0 F 04/27/21 07:28 Pulse 78 04/27/21 07:28 Resp 17 04/27/21 07:28 BP 125/77 04/27/21 07:28 Pulse Ox 97 04/27/21 07:28 BMI result Body Mass Index 31.8 Const: General: no acute distress and well developed Nutritional Appearance: well nourished Orientation/consciousness: patient oriented x3 Limitations: no limitations Resp: Effort & Inspection: normal respiratory effort, no audible wheezes and no cough Skin: General skin exam: no rashes or lesions noted Neuro: General: patient oriented x3 Extrem: Other: Right great toe wound with a small amount of necrotic eschar at the margin. This was excised along with a small amount of skin and subcutaneous tissue measuring approximately 1 cm by 2 cm by 0.5 cm deep. No underlying abscess is identified. Wounds were packed with silver alginate followed by dry sterile dressings. Objective Data Active Medications Acetaminophen (Acetaminophen 325 Mg Tablet) 650 mg PO Q6H PRN PRN Reason: Pain, Mild (Pain Scale 1-3) Atorvastatin Calcium (Atorvastatin Calcium 80 Mg Tablet) 80 mg PO DAILY [facility] Last Admin: 04/27/21 08:14 Dose: 80 mg Documented by: MATT Dextrose (Dextrose 50 % 25 Gm/50 Ml Vial) 25 gm IVPUSH Q15M PRN; Protocol PRN Reason: per Hypoglycemia Standing Ord. Diltiazem HCl (Diltiazem Hcl Cd 300 Mg Cap.Er.24h) 300 mg PO DAILY [facility]; Protocol Last Admin: 04/27/21 08:14 Dose: 300 mg Documented by: MATT Docusate Sodium (Docusate Sodium 100 Mg Capsule) 100 mg PO DAILY PRN PRN Reason: Constipation Enoxaparin Sodium (Enoxaparin Sodium 40 Mg/0.4 Ml Syringe) 40 mg SUBCUT Q24H [facility] Last Admin: 04/27/21 08:14 Dose: 40 mg Documented by: MATT Glucose (Glucose Gel 15 Gm Gel..Gram.) 15 gm PO Q15M PRN; Protocol PRN Reason: per Hypoglycemia Standing Ord. Piperacillin Sod/Tazobactam (Sod 3.375 gm/ Sodium Chloride) 50 mls @ 100 mls/hr IV Q6H [facility] Last Admin: 04/27/21 08:13 Dose: 100 mls/hr Documented by: MATT Vancomycin HCl 1,500 mg/ (Sodium Chloride) 500 mls @ 333.333 mls/hr IV Q12H [facility] Last Infusion: 04/27/21 00:21 Dose: 0 mls/hr Documented by: TORIBIO Insulin Human Lispro (Insulin Lispro 100 Unit/Ml 3 Ml Vial) 0 unit SUBCUT QIDACHS [facility]; Protocol Last Admin: 04/27/21 08:15 Dose: 4 unit Documented by: MATT Lisinopril (Lisinopril 10 Mg Tablet) 30 mg PO DAILY [facility]; Protocol Last Admin: 04/27/21 08:14 Dose: 30 mg Documented by: MATT Ondansetron HCl (Ondansetron Hcl 4 Mg/2 Ml Vial) 4 mg IVPUSH Q8H PRN PRN Reason: Nausea and Vomiting Pharmacy Consult (Consult Rx Perform Med Rec) 1 each MISCELLANE ONCE PRN PRN Reason: Consult order Pharmacy Consult (Consult Rx Vancomycin Dosing) 1 each MISCELLANE DAILY PRN PRN Reason: Consult order Sodium Chloride (0.9 % Sodium Chloride Flush 3 Ml Syringe) 3 ml IVFLUSH QSHIFT [facility] Last Admin: 04/27/21 08:14 Dose: 3 ml Documented by: MATT Labs CBC & Chem 7: 04/26/21 06:16 04/27/21 05:52 Labs: Laboratory Results - last 24 hr 04/26/21 04/26/21 04/26/21 12:48 16:34 19:48 Anion Gap Estim Creat Clear Calc Estimated GFR POC Glucose 193 H 263 H Random Glucose Calcium Vancomycin Trough 6.9 L 04/26/21 04/27/21 04/27/21 20:55 05:52 07:27 Anion Gap 13 Estim Creat Clear Calc 140.2 Estimated GFR > 60 POC Glucose 287 H 213 H Random Glucose 208 H Calcium 9.1 Vancomycin Trough Microbiology Microbiology Results: Microbiology 04/25/21 01:51 Blood Culture - Preliminary Blood - Venous No growth after 24 hours. 04/25/21 01:51 Blood Culture - Preliminary Blood - Venous No growth after 24 hours. Procedures Date of Service Date of Service: 04/27/21 Progress Note: A&P Assessment and plan (1) Diabetic foot ulcer: Status: Acute (2) Osteomyelitis of great toe of right foot: Status: Acute Assessment and Plan: 65-year-old male patient presenting with an ulcer of the right great toe with underlying osteomyelitis. Wounds were debrided today noted above and packed with silver alginate. Recommend daily dressing changes with silver alginate and dry sterile dressings. Plan for 6 weeks IV antibiotics for osteomyelitis. Fall Risk Details Current Medications: Current Medications Acetaminophen (Acetaminophen 325 Mg Tablet) 650 mg PO Q6H PRN PRN Reason: Pain, Mild (Pain Scale 1-3) Atorvastatin Calcium (Atorvastatin Calcium 80 Mg Tablet) 80 mg PO DAILY [facility] Last Admin: 04/27/21 08:14 Dose: 80 mg Documented by: Dextrose (Dextrose 50 % 25 Gm/50 Ml Vial) 25 gm IVPUSH Q15M PRN; Protocol PRN Reason: per Hypoglycemia Standing Ord. Diltiazem HCl (Diltiazem Hcl Cd 300 Mg Cap.Er.24h) 300 mg PO DAILY [facility]; Protocol Last Admin: 04/27/21 08:14 Dose: 300 mg Documented by: Docusate Sodium (Docusate Sodium 100 Mg Capsule) 100 mg PO DAILY PRN PRN Reason: Constipation Enoxaparin Sodium (Enoxaparin Sodium 40 Mg/0.4 Ml Syringe) 40 mg SUBCUT Q24H [facility] Last Admin: 04/27/21 08:14 Dose: 40 mg Documented by: Glucose (Glucose Gel 15 Gm Gel..Gram.) 15 gm PO Q15M PRN; Protocol PRN Reason: per Hypoglycemia Standing Ord. Piperacillin Sod/Tazobactam (Sod 3.375 gm/ Sodium Chloride) 50 mls @ 100 mls/hr IV Q6H [facility] Last Admin: 04/27/21 08:13 Dose: 100 mls/hr Documented by: Vancomycin HCl 1,500 mg/ (Sodium Chloride) 500 mls @ 333.333 mls/hr IV Q12H [facility] Last Infusion: 04/27/21 00:21 Dose: Infused Documented by: Insulin Human Lispro (Insulin Lispro 100 Unit/Ml 3 Ml Vial) 0 unit SUBCUT QIDACHS [facility]; Protocol Last Admin: 04/27/21 08:15 Dose: 4 unit Documented by: Lisinopril (Lisinopril 10 Mg Tablet) 30 mg PO DAILY [facility]; Protocol Last Admin: 04/27/21 08:14 Dose: 30 mg Documented by: Ondansetron HCl (Ondansetron Hcl 4 Mg/2 Ml Vial) 4 mg IVPUSH Q8H PRN PRN Reason: Nausea and Vomiting Pharmacy Consult (Consult Rx Perform Med Rec) 1 each MISCELLANE ONCE PRN PRN Reason: Consult order Pharmacy Consult (Consult Rx Vancomycin Dosing) 1 each MISCELLANE DAILY PRN PRN Reason: Consult order Sodium Chloride (0.9 % Sodium Chloride Flush 3 Ml Syringe) [address] [facility] Last Admin: 04/27/21 08:14 Dose: 3 ml Documented by: Time Spent With Patient Time: Total time spent is greater than 50% in coordination of care (as documented) at patient's floor/unit and/or counseling patient: Time with patient: 15 - 24 minutes Quality Stroke Does the patient have a stroke diagnosis?: No VTE Prior VTE?: No VTE Risk Level:: Medical - moderate - high VTE Device Contraindication: Treatment Not Indicated VTE Drug Contraindication: N/A - Med Ordered
[2021-04-27] MEDS: vancomycin HCL 1,500 MG in 0.9 % Sodium Chloride 500 ML 333.33 MG IV ×2 (09:50→20:49)
--- NOTE | 2021-04-27 10:32 | HO.PM.IMPN ---
Subjective Subjective Date of Service: 04/27/21 Interval History: the patient was seen and evaluated this morning Laying in bed, feels improvement with no pain reported No drainage from the wound Denies any fever, chills or shortness of breath No reported other overnight events. Systemic review: No fever, chills or weakness No chest pain, palpitation No shortness of breath or coughing No abdominal pain, nausea or vomiting No urinary symptoms Lower extremity wound Physical Exam Vital Signs: Vital Signs: Last Vital Signs Temp 97.0 F 04/27/21 07:28 Pulse 78 04/27/21 07:28 Resp 17 04/27/21 07:28 BP 125/77 04/27/21 07:28 Pulse Ox 97 04/27/21 07:28 BMI result Body Mass Index 31.8 Const: Other: Constitutional : Alert, oriented, not in distress Neck : Normal inspection, Supple Cardiovascular : RRR, S1 S2, no lower extremity edema Respiratory : Good bilateral air entry, no crackles, wheezes or rhonchi Gastrointestinal: soft, lax, Normal bowel sounds, Non tender Skin : Warm, Dry, foot ulcer at the base of the right big toe , nondraining, mildly tender on palpation, no significant erythema Neurological : Alert & oriented x3, No focal deficit Objective Data Active Medications Acetaminophen (Acetaminophen 325 Mg Tablet) 650 mg PO Q6H PRN PRN Reason: Pain, Mild (Pain Scale 1-3) Atorvastatin Calcium (Atorvastatin Calcium 80 Mg Tablet) 80 mg PO DAILY [facility] Last Admin: 04/27/21 08:14 Dose: 80 mg Documented by: MATT Dextrose (Dextrose 50 % 25 Gm/50 Ml Vial) 25 gm IVPUSH Q15M PRN; Protocol PRN Reason: per Hypoglycemia Standing Ord. Diltiazem HCl (Diltiazem Hcl Cd 300 Mg Cap.Er.24h) 300 mg PO DAILY [facility]; Protocol Last Admin: 04/27/21 08:14 Dose: 300 mg Documented by: MATT Docusate Sodium (Docusate Sodium 100 Mg Capsule) 100 mg PO DAILY PRN PRN Reason: Constipation Enoxaparin Sodium (Enoxaparin Sodium 40 Mg/0.4 Ml Syringe) 40 mg SUBCUT Q24H [facility] Last Admin: 04/27/21 08:14 Dose: 40 mg Documented by: MATT Glucose (Glucose Gel 15 Gm Gel..Gram.) 15 gm PO Q15M PRN; Protocol PRN Reason: per Hypoglycemia Standing Ord. Piperacillin Sod/Tazobactam (Sod 3.375 gm/ Sodium Chloride) 50 mls @ 100 mls/hr IV Q6H [facility] Last Infusion: 04/27/21 09:17 Dose: 0 mls/hr Documented by: MATT Vancomycin HCl 1,500 mg/ (Sodium Chloride) 500 mls @ 333.333 mls/hr IV Q12H [facility] Last Admin: 04/27/21 09:50 Dose: 333.33 mls/hr Documented by: MATT Insulin Human Lispro (Insulin Lispro 100 Unit/Ml 3 Ml Vial) 0 unit SUBCUT QIDACHS [facility]; Protocol Last Admin: 04/27/21 08:15 Dose: 4 unit Documented by: MATT Lisinopril (Lisinopril 10 Mg Tablet) 30 mg PO DAILY [facility]; Protocol Last Admin: 04/27/21 08:14 Dose: 30 mg Documented by: MATT Ondansetron HCl (Ondansetron Hcl 4 Mg/2 Ml Vial) 4 mg IVPUSH Q8H PRN PRN Reason: Nausea and Vomiting Pharmacy Consult (Consult Rx Perform Med Rec) 1 each MISCELLANE ONCE PRN PRN Reason: Consult order Pharmacy Consult (Consult Rx Vancomycin Dosing) 1 each MISCELLANE DAILY PRN PRN Reason: Consult order Sodium Chloride (0.9 % Sodium Chloride Flush 3 Ml Syringe) 3 ml IVFLUSH QSHIFT [facility] Last Admin: 04/27/21 08:14 Dose: 3 ml Documented by: MATT Labs CBC & Chem 7: 04/26/21 06:16 04/27/21 05:52 Labs: Laboratory Results - last 24 hr 04/26/21 04/26/21 04/26/21 12:48 16:34 19:48 Anion Gap Estim Creat Clear Calc Estimated GFR POC Glucose 193 H 263 H Random Glucose Calcium Vancomycin Trough 6.9 L 04/26/21 04/27/21 04/27/21 20:55 05:52 07:27 Anion Gap 13 Estim Creat Clear Calc 140.2 Estimated GFR > 60 POC Glucose 287 H 213 H Random Glucose 208 H Calcium 9.1 Vancomycin Trough Microbiology Microbiology Results: Microbiology 04/25/21 01:51 Blood Culture - Preliminary Blood - Venous No growth after 48 hours. 04/25/21 01:51 Blood Culture - Preliminary Blood - Venous No growth after 48 hours. Assessment and Plan (1) Osteomyelitis of great toe of right foot: Status: Acute (2) Diabetic foot ulcer: Status: Acute Assessment and Plan: 65-year-old man with past medical history of diabetes and hypertension who presents to the hospital with nonhealing diabetic foot ulcer # osteomyelitis big toe, right # diabetic foot infection MRI confirmed diagnosis of osteomyelitis Id and surgery consult Continue IV antibiotic Negative final culture To place a PICC line today Id input appreciated, treat with 6 weeks of ertapenem # type 2 diabetes with hyperglycemia Continue low-dose sliding scale insulin diabetic diet # HTN Continue diltiazem and lisinopril DVT ppx lovenox Quality Stroke Does the patient have a stroke diagnosis?: No VTE Prior VTE?: No VTE Risk Level:: Medical - moderate - high VTE Device Contraindication: Treatment Not Indicated VTE Drug Contraindication: N/A - Med Ordered
[2021-04-27 11:31] LABS: Glucose, Whole Blood 214 mg/dL (60-115)
[2021-04-27 11:32] VITALS: BP 138/79; PULSE 79; RESP 18; TEMP 37; O2SAT 93
--- NOTE | 2021-04-27 11:58 | P.CNID_ITS ---
History of Present Illness Data of Consult Service Date: 04/27/21 Requesting physician: Rohit Dhaliwal Primary Care Provider: Unknown Physician HPI Reason for consult: diabetic ulcer foot He presents to hospital with right great toe infection with swelling over last two months MRI shows osteomyelitis great toe. He has some redness area. Review of Systems Review of Systems: Yes all other systems are reviewed and are negative PMFSH Past Medical History Medical History Diabetes Hypertension Family History Family History Other Diabetes Family history: reviewed and not pertinent Surgical History Surgical History Hx of [facility] Social History Social History Household Members: Family Housing: House Do you presently have visiting nurse or other home services: No Alcohol intake: current Patient Tobacco Use Status: Former Tobacco user service: No Current occupational status: employed Meds Allergies Allergy/AdvReac Type Severity Reaction Status Date / Time codeine Allergy Unknown Verified 04/25/21 06:38 Active Medications: Current Medications Acetaminophen (Acetaminophen 325 Mg Tablet) 650 mg PO Q6H PRN PRN Reason: Pain, Mild (Pain Scale 1-3) Atorvastatin Calcium (Atorvastatin Calcium 80 Mg Tablet) 80 mg PO DAILY [facility] Last Admin: 04/27/21 08:14 Dose: 80 mg Documented by: Dextrose (Dextrose 50 % 25 Gm/50 Ml Vial) 25 gm IVPUSH Q15M PRN; Protocol PRN Reason: per Hypoglycemia Standing Ord. Diltiazem HCl (Diltiazem Hcl Cd 300 Mg Cap.Er.24h) 300 mg PO DAILY [facility]; Protocol Last Admin: 04/27/21 08:14 Dose: 300 mg Documented by: Docusate Sodium (Docusate Sodium 100 Mg Capsule) 100 mg PO DAILY PRN PRN Reason: Constipation Enoxaparin Sodium (Enoxaparin Sodium 40 Mg/0.4 Ml Syringe) 40 mg SUBCUT Q24H [facility] Last Admin: 04/27/21 08:14 Dose: 40 mg Documented by: Glucose (Glucose Gel 15 Gm Gel..Gram.) 15 gm PO Q15M PRN; Protocol PRN Reason: per Hypoglycemia Standing Ord. Piperacillin Sod/Tazobactam (Sod 3.375 gm/ Sodium Chloride) 50 mls @ 100 mls/hr IV Q6H [facility] Last Infusion: 04/27/21 09:17 Dose: Infused Documented by: Vancomycin HCl 1,500 mg/ (Sodium Chloride) 500 mls @ 333.333 mls/hr IV Q12H [facility] Last Admin: 04/27/21 09:50 Dose: 333.33 mls/hr Documented by: Insulin Human Lispro (Insulin Lispro 100 Unit/Ml 3 Ml Vial) 0 unit SUBCUT QIDACHS ON [facility] OF [facility]; Protocol Last Admin: 04/27/21 08:15 Dose: 4 unit Documented by: Lisinopril (Lisinopril 10 Mg Tablet) 30 mg PO DAILY [facility]; Protocol Last Admin: 04/27/21 08:14 Dose: 30 mg Documented by: Ondansetron HCl (Ondansetron Hcl 4 Mg/2 Ml Vial) 4 mg IVPUSH Q8H PRN PRN Reason: Nausea and Vomiting Pharmacy Consult (Consult Rx Perform Med Rec) 1 each MISCELLANE ONCE PRN PRN Reason: Consult order Pharmacy Consult (Consult Rx Vancomycin Dosing) 1 each MISCELLANE DAILY PRN PRN Reason: Consult order Sodium Chloride (0.9 % Sodium Chloride Flush 3 Ml Syringe) 3 ml IVFLUSH [facility] Last Admin: 04/27/21 08:14 Dose: 3 ml Documented by: Home Medications Medication Instructions Recorded Confirmed Last Taken Type atorvastatin 80 mg tablet 1 tab PO DAILY 04/25/21 04/25/21 04/23/21 History dapagliflozin 10 mg-metformin ER 1 tab PO DAILY 04/25/21 04/25/21 04/23/21 History 1,000 mg tablet,extended release 24hr (Xigduo XR) diltiazem HCl 300 mg 1 cap PO DAILY 04/25/21 04/25/21 04/23/21 History capsule,extended release 24 hr lisinopril 30 mg tablet 1 tab PO DAILY 04/25/21 04/25/21 04/23/21 History Physical Exam Vital Signs: Vital Signs: Last Vital Signs Temp 98.6 F 04/27/21 11:32 Pulse 79 04/27/21 11:32 Resp 18 04/27/21 11:32 BP 138/79 04/27/21 11:32 Pulse Ox 93 04/27/21 11:32 BMI result Body Mass Index 31.8 Const: General: cooperative HENMT: Mouth: Normal oral and palatal mucosa present Eyes: Pupils: Equal, round and reactive pupils present Resp: Effort & Inspection: normal respiratory effort Cardio: Rate: regular rate Rhythm: regular rhythm GI: Palpation (GI): Soft to palpation and nontender Neuro: Cranial nerves: Yes Equal, round and reactive pupils present Extrem: Other: redness right great toe Results Labs CBC & Chem 7: 04/26/21 06:16 04/27/21 05:52 Labs: BMP 04/27/21 05:52 Sodium 137 Potassium 4.3 Chloride 105 Carbon Dioxide 23 BUN 12 Creatinine 0.72 Calcium 9.1 Microbiology Microbiology Results: Microbiology 04/25/21 01:51 Blood - Venous Blood Culture - Preliminary No growth after 48 hours. 04/25/21 01:51 Blood - Venous Blood Culture - Preliminary No growth after 48 hours. Assessment and Plan (1) Diabetic foot ulcer: Status: Acute (2) Osteomyelitis of great toe of right foot: Status: Acute There is great toe osteomyelitis He has possible gram negative,gram positive He has diabetes Ertapenem for six weeks Follow Vascular
[2021-04-27] MEDS: Acetaminophen 325 MG TABLET 650 MG PO (14:40)
--- NOTE | 2021-04-27 15:07 | MHC.CLN ---
NUTRITION CHANGED KCALS TO 2200 KCAL. DIET=DIABETIC 2200 KCAL. PROVIDES 24.8 KCAL/KG IBW.
[2021-04-27 16:00] VITALS: BP 120/76; PULSE 92; RESP 18; TEMP 36.6; O2SAT 94
--- NOTE | 2021-04-27 16:58 | P.PICC_ITS ---
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 Following completion of [place] Protocol the skin and soft tissues were anesthetized with 1% Lidocaine plain. Using ultrasound guidance, [right basilic] vein access was obtained on first attempt, but unable to advance guidewire. Right brachial vein access was then obtained on first attempt. Over an 0.018 wire through peel-away sheath, a [4FR single lumen] PICC line was positioned. Catheter length is [44 CM] internal length, [0 CM] external length, for a total trimmed length of [44 CM]. The procedure was performed in [S272]. Tip verification was performed by Gerardo Strong with Sherlock 3CG. Tip located in SVC. Ultrasound was used to document vein patency and for needle entry. A formal ultrasound picture and cardiac rhythm strip was recorded. [facility] has released the line for use and it is currently dressed with a StatLock, Tegaderm, and CHG disc. Verification has been performed for blood return and line patency. Arm Circumference: [33 CM] Equipment: [[employer] Power PICC Solo] Catheter Type: [4FR single lumen PICC] Lot #: [[id number]]
[2021-04-27 17:10] LABS: Glucose, Whole Blood 252 mg/dL (60-115)
[2021-04-27 19:59] VITALS: BP 140/82; PULSE 90; RESP 18; TEMP 36.4; O2SAT 93
[2021-04-27 20:07] LABS: Glucose, Whole Blood 293 mg/dL (60-115)
[2021-04-27] MEDS: 0.9 % Sodium Chloride Flush 10 ML SYRINGE 5 ML IVFLUSH (20:53)
[2021-04-27 23:47] VITALS: BP 119/73; PULSE 70; RESP 18; TEMP 36.2; O2SAT 93
[2021-04-28 04:00] VITALS: BP 108/57; PULSE 74; RESP 18; TEMP 36.1; O2SAT 92
[2021-04-28] MEDS: Piperacillin Sodium/Tazobactam 3.375 GM in 0.9 % Sodium Chloride 50 ML IV (04:10)
[2021-04-28 07:12] VITALS: BP 133/85; PULSE 78; RESP 18; TEMP 36.4; O2SAT 94
[2021-04-28 07:26] LABS: Glucose, Whole Blood 233 mg/dL (60-115)
[2021-04-28 07:36] LABS: Anion Gap 16 (12-20); Blood Urea Nitrogen 11 mg/dL (9-16); Calcium 9.3 mg/dL (8.4-10.2); Carbon Dioxide 22 mmol/L (22-29); Chloride 105 mmol/L (96-108); Creatinine Clr Calc Pharmacy 134.6; Estimated Glomerular Filt Rate > 60; Glucose Random 223 mg/dL (60-115); Potassium 4.6 mmol/L (3.3-5.1); Sodium 138 mmol/L (135-145)
[2021-04-28] MEDS: Ertapenem Sodium 1 GM in 0.9 % Sodium Chloride 50 ML IV (07:41)
[2021-04-28] MEDS: Insulin Lispro 100 UNIT/ML 3 ML VIAL SUBCUT ×2 (07:41→11:48)
[2021-04-28 07:42] VITALS: BP 133/85; PULSE 78
[2021-04-28 07:42] LABS: Vancomycin Trough 11.6 mcg/mL (10.0-20.0)
[2021-04-28] MEDS: lisinopriL 10 MG TABLET 30 MG PO (07:42)
[2021-04-28] MEDS: dilTIAZem HCL CD 300 MG CAP.ER.24H PO (07:42)
[2021-04-28] MEDS: Atorvastatin Calcium 80 MG TABLET PO (07:42)
[2021-04-28] MEDS: Enoxaparin Sodium 40 MG/0.4 ML SYRINGE SUBCUT (07:43)
[2021-04-28] MEDS: 0.9 % Sodium Chloride Flush 10 ML SYRINGE 5 ML IVFLUSH ×2 (07:43→15:16)
[2021-04-28] MEDS: 0.9 % Sodium Chloride Flush 3 ML SYRINGE IVFLUSH ×2 (07:43→15:16)
[2021-04-28 11:20] VITALS: BP 143/84; PULSE 84; RESP 18; TEMP 36.2; O2SAT 95
[2021-04-28 11:39] LABS: Glucose, Whole Blood 209 mg/dL (60-115)
--- NOTE | 2021-04-28 13:50 | HO.PM.IMPN ---
Subjective Subjective Date of Service: 04/28/21 Interval History: the patient was seen and evaluated this morning Laying in bed, feels better today No drainage from the wound Denies any fever, chills or shortness of breath No reported other overnight events. Systemic review: No fever, chills or weakness No chest pain, palpitation No shortness of breath or coughing No abdominal pain, nausea or vomiting No urinary symptoms Lower extremity wound Physical Exam Vital Signs: Vital Signs: Last Vital Signs Temp 97.2 F 04/28/21 11:20 Pulse 84 04/28/21 11:20 Resp 18 04/28/21 11:20 BP 143/84 H 04/28/21 11:20 Pulse Ox 95 04/28/21 11:20 BMI result Body Mass Index 31.8 Const: Other: Constitutional : Alert, oriented, not in distress Neck : Normal inspection, Supple Cardiovascular : RRR, S1 S2, no lower extremity edema Respiratory : Good bilateral air entry, no crackles, wheezes or rhonchi Gastrointestinal: soft, lax, Normal bowel sounds, Non tender Skin : Warm, Dry, foot ulcer at the base of the right big toe , nondraining, mildly tender on palpation, no significant erythema Neurological : Alert & oriented x3, No focal deficit Objective Data Active Medications Acetaminophen (Acetaminophen 325 Mg Tablet) 650 mg PO Q6H PRN PRN Reason: Pain, Mild (Pain Scale 1-3) Last Admin: 04/27/21 14:40 Dose: 650 mg Documented by: MATT Atorvastatin Calcium (Atorvastatin Calcium 80 Mg Tablet) 80 mg PO DAILY [facility] Last Admin: 04/28/21 07:42 Dose: 80 mg Documented by: WILY Dextrose (Dextrose 50 % 25 Gm/50 Ml Vial) 25 gm IVPUSH Q15M PRN; Protocol PRN Reason: per Hypoglycemia Standing Ord. Diltiazem HCl (Diltiazem Hcl Cd 300 Mg Cap.Er.24h) 300 mg PO DAILY [facility]; Protocol Last Admin: 04/28/21 07:42 Dose: 300 mg Documented by: WILY Docusate Sodium (Docusate Sodium 100 Mg Capsule) 100 mg PO DAILY PRN PRN Reason: Constipation Enoxaparin Sodium (Enoxaparin Sodium 40 Mg/0.4 Ml Syringe) 40 mg SUBCUT Q24H [facility] Last Admin: 04/28/21 07:43 Dose: 40 mg Documented by: WILY Glucose (Glucose Gel 15 Gm Gel..Gram.) 15 gm PO Q15M PRN; Protocol PRN Reason: per Hypoglycemia Standing Ord. Insulin Human Lispro (Insulin Lispro 100 Unit/Ml 3 Ml Vial) 0 unit SUBCUT QIDACHS [facility]; Protocol Last Admin: 04/28/21 11:48 Dose: 4 unit Documented by: WILY Lisinopril (Lisinopril 10 Mg Tablet) 30 mg PO DAILY [facility]; Protocol Last Admin: 04/28/21 07:42 Dose: 30 mg Documented by: WILY Ondansetron HCl (Ondansetron Hcl 4 Mg/2 Ml Vial) 4 mg IVPUSH Q8H PRN PRN Reason: Nausea and Vomiting Pharmacy Consult (Consult Rx Perform Med Rec) 1 each MISCELLANE ONCE PRN PRN Reason: Consult order Pharmacy Consult (Consult Rx Vancomycin Dosing) 1 each MISCELLANE DAILY PRN PRN Reason: Consult order Sodium Chloride (0.9 % Sodium Chloride Flush 3 Ml Syringe) 3 ml IVFLUSH QSHIFT [facility] Last Admin: 04/28/21 07:43 Dose: 3 ml Documented by: WILY Sodium Chloride (0.9 % Sodium Chloride Flush 10 Ml Syringe) 5 ml IVFLUSH TID [facility] Last Admin: 04/28/21 07:43 Dose: 5 ml Documented by: WILY Labs CBC & Chem 7: 04/26/21 06:16 04/28/21 06:59 Labs: Laboratory Results - last 24 hr 04/27/21 04/27/21 04/28/21 17:05 20:02 06:59 Anion Gap Estim Creat Clear Calc Estimated GFR POC Glucose 252 H 293 H Random Glucose Calcium Vancomycin Trough 11.6 04/28/21 04/28/21 04/28/21 06:59 07:16 11:26 Anion Gap 16 Estim Creat Clear Calc 134.6 Estimated GFR > 60 POC Glucose 233 H 209 H Random Glucose 223 H Calcium 9.3 Vancomycin Trough Microbiology Microbiology Results: Microbiology 04/25/21 01:51 Blood Culture - Preliminary Blood - Venous No growth after 48 hours. 04/25/21 01:51 Blood Culture - Preliminary Blood - Venous No growth after 48 hours. Assessment and Plan (1) Osteomyelitis of great toe of right foot: Status: Acute (2) Diabetic foot ulcer: Status: Acute Assessment and Plan: 65-year-old man with past medical history of diabetes and hypertension who presents to the hospital with nonhealing diabetic foot ulcer # osteomyelitis big toe, right # diabetic foot infection MRI confirmed diagnosis of osteomyelitis Id and surgery consult Negative final culture PICC line placed, received 1st dose of ertapenem Id input appreciated, treat with 6 weeks of ertapenem # type 2 diabetes with hyperglycemia Continue low-dose sliding scale insulin diabetic diet # HTN Continue diltiazem and lisinopril DVT ppx lovenox Quality Stroke Does the patient have a stroke diagnosis?: No VTE Prior VTE?: No VTE Risk Level:: Medical - moderate - high VTE Device Contraindication: Treatment Not Indicated VTE Drug Contraindication: N/A - Med Ordered
--- NOTE | 2021-04-28 14:39 | MHC.CM.PN ---
PATIENT SECURED PAYMENT FOR [facility] TO DELIVER DOSES TONIGHT PATIENT US ALSO AWARE THAT AMANDA CRENSHAW WILL VERIFY INSURANCE ON FRIDAY, BUT HAVE NOT YET AGREED TO SERVICE. PATIENT ASKS IF HE CAN HAVE HIS DRESSING CHANGED OUTPATIENT HERE AND THIS DOOR WORKER SUGGESTED A VISIT TO PCP OFFICE OR URGENT CARE PATIENT DOES NOT WANT TO STAY ANOTHER NIGHT AND WANTS TO GET HOME BEFORE THE SNOW. AMANDA CRENSHAW CONTACT NUMBER LEFT FOR PATIENT. HE IS AWARE THAT IF AGENCY IS UNABLE TO OFFER, HE WILL HAVE TO GET A REFERRAL FROM HIS PCP OFFICE.
[2021-04-28 14:57] VITALS: BP 146/87; PULSE 88; RESP 16; TEMP 36.2; O2SAT 93
--- NOTE | 2021-04-28 15:15 | MHC.CM.PN ---
PATIENT TELLS THIS STEERSMAN AND RN THAT SURGEON EDUCATED PATIENT ON DRESSING CHANGES AND PATIENT WAS ABLE TO DEMONSTRATE PROPER WOUND CARE. HE WILL BE SENT HOME WITH SUPPLIES
--- NOTE | 2021-04-28 15:22 | PM.DS ---
DS: Providers Provider Date of Service: 04/28/21 Date of admission: 04/25/21 05:59 Primary care physician: Unknown Physician Consults: 04/25/21 05:58 Consult to Infectious Diseases Routine Consulting Provider: Mary Andrade Reason for consultation: non-healing diabetic foot ulcer Has provider been notified: No 04/25/21 06:33 Consult to General Surgery Routine Consulting Provider: Saurabh Mcguire Reason for consultation: foot ulcer- I&D Has provider been notified: No DS: Diagnosis Discharge Diagnosis (1) Osteomyelitis of great toe of right foot: Status: Acute (2) Diabetic foot ulcer: Status: Acute DS: Summary Hospital Course Hospital Course: Admission note HPI 65-year-old male with past medical history of diabetes and hypertension who presents to the hospital with complaints of nonhealing right foot base ulcer.? Patient reports that he initially had bruising around his 2nd MTP but then developed a small ulcer at the base of the 1st big toe that has now developed into a nonhealing wound.? He went to his remedy developer today, who recommended that he comes to the ED for further evaluation.? Patient reports that he was following up with his remedy developer and was using topical ointment but the wound was not healing.? He has minimal drainage with no fever or chills, mild tenderness at the base of the foot, has history of neuropathy. ?denies any palpitations or chest pain, no shortness of breath, no headache or change in vision, no abdominal pain nausea or vomiting, no diarrhea constipation, no urinary symptoms and no lower extremity edema.? No weakness numbness or tingling. On arrival to the ED patient hemodynamically stable with no significant abnormal vitals except for an elevated blood pressure of 171/95 Labs are significant for ESR of 12, CRP of 1.23, CBC pending due to downtime with the system Foot x-ray shows 1st digit ulcer with underlying osseous erosion, fracture of the 2nd digit middle phalanx Patient will be admitted for evaluation by Infectious Disease and possible need for MRI to rule out osteomyelitis Hospital course The patient was admitted for evaluation of diabetic foot infection and osteomyelitis of the PICC right toe seen on MRI. Started on broad-spectrum antibiotics and evaluated by infectious disease specialist who recommended total of 6 weeks of ertapenem. A PICC line was placed after blood cultures came back negative. Patient will be discharged home with [facility]NA following. To repeat CBC and BMP weekly. to follow-up with wound clinic and surgery as outpatient. Time Spent with Patient Time attestation: Total time spent providing and/or coordinating discharge services: Discharge coordination time: Greater than 30 minutes Quality: Stroke Does the patient have a stroke diagnosis?: No Physical Exam Vital Signs: Vital Signs: Last Vital Signs Temp 97.1 F 04/28/21 14:57 Pulse 88 04/28/21 14:57 Resp 16 04/28/21 14:57 BP 146/87 H 04/28/21 14:57 Pulse Ox 93 04/28/21 14:57 BMI result Body Mass Index 31.8 Const: Other: Constitutional : Alert, oriented, not in distress Neck : Normal inspection, Supple Cardiovascular : RRR, S1 S2, no lower extremity edema Respiratory : Good bilateral air entry, no crackles, wheezes or rhonchi Gastrointestinal: soft, lax, Normal bowel sounds, Non tender Skin : Warm, Dry, foot ulcer at the base of the right big toe , nondraining, mildly tender on palpation, no significant erythema Neurological : Alert & oriented x3, No focal deficit DS: Data Data Completed and Pending Labs on day of discharge: Laboratory Results - last 24 hr 04/27/21 04/27/21 04/28/21 17:05 20:02 06:59 Sodium Potassium Chloride Carbon Dioxide Anion Gap BUN Creatinine Estim Creat Clear Calc Estimated GFR POC Glucose 252 H 293 H Random Glucose Calcium Vancomycin Trough 11.6 04/28/21 04/28/21 04/28/21 06:59 07:16 11:26 Sodium 138 Potassium 4.6 Chloride 105 Carbon Dioxide 22 Anion Gap 16 BUN 11 Creatinine 0.75 Estim Creat Clear Calc 134.6 Estimated GFR > 60 POC Glucose 233 H 209 H Random Glucose 223 H Calcium 9.3 Vancomycin Trough Preliminary micro results at discharge 04/25/21 01:51 Blood Culture - Preliminary Blood - Venous No growth after 48 hours. 04/25/21 01:51 Blood Culture - Preliminary Blood - Venous No growth after 48 hours. Imaging MRI Foot: Radiologist's impression: ITS Impressions Foot X-Ray 04/25/21 00:35 IMPRESSION: First digit ulcer with no underlying osseous erosion. Fracture of the second digit middle phalanx. This is of uncertain acuity. Foot MRI 04/25/21 19:40 IMPRESSION: 1. Great toe skin wound with underlying osteomyelitis at the great toe distal phalanx. No abscess. 2. [id number] fracture of the second toe middle phalanx. Discharge Plan Discharge Patient Disposition: Home Health Service Discharge Diagnosis: Diabetic foot infection, OSteomyelitis of big toe Referrals: Wound Care [facility] [Outside] - 1 Week (PLEASE FOLLOW UP WITH WOUND CARE FOR YOUR CONTINUED NEEDS. CONTACT NUMBER IS WRITTEN ABOVE.) Physician,Unknown J [Primary Care Provider] - 1 Week Discharge Medications: New ertapenem 1 gram recon soln 1 g IV DAILY Qty: 41 RF: 0 Continued atorvastatin 80 mg tablet 1 tab PO DAILY RF: 0 diltiazem HCl 300 mg capsule,extended release 24hr 1 cap PO DAILY RF: 0 lisinopril 30 mg tablet 1 tab PO DAILY RF: 0 Xigduo XR 10-1,000 mg tablet, IR - ER, biphasic 24hr 1 tab PO DAILY RF: 0 Discharge Orders: Discharge Order (Routine); Ordered 04/28/21 Ordered By: Rohit Dhaliwal Diet: advance to usual diet Activity on Discharge: As tolerated Stand Alone Forms: Patient Portal Discharge page, Work/School Release Care Plan Goals: Read below Health Concerns: Read below Plan of Treatment: Read below Assessment: You were admitted for foot ulcer. Evaluated by MRI which showed osteomyelitis of the big toe. Seen by Infectious Disease who recommended IV antibiotics for total of 6 weeks. Continue ertapenem as prescribed. To follow-up with wound care.
== END 2021-04-28 15:50 | disposition home health service (06) | DRG 344 ==
LOC: HO.ED 04-25 00:40 → HO.EDOVER 04-25 06:25 → HO.S3 04-26 22:39
PROVIDERS: Admitting Provider Internal Medicine; Emergency Provider Student in an Organized Health Care Education/Training Program; Visit Provider Student in an Organized Health Care Education/Training Program
DX: E11.69 Type 2 diabetes mellitus with other specified complication (principal); M86.9 Osteomyelitis, unspecified; E11.621 Type 2 diabetes mellitus with foot ulcer; E11.65 Type 2 diabetes mellitus with hyperglycemia; L97.519 Non-pressure chronic ulcer of other part of right foot with unspecified severity; I10 Essential (primary) hypertension; Z20.822 Contact with and (suspected) exposure to COVID-19; Z88.5 Allergy status to narcotic agent; Z87.891 Personal history of nicotine dependence; Z79.899 Other long term (current) drug therapy
CPT/HCPCS: 36415; 36573; 73630; 73720; 80048; 80053; 80202; 82947; 83605; 85025; 85027; 85652; 86140; 87040; 87635; 96365; 99285; A9585; C1751; J1335; J1650; J2543; J3370

== ENCOUNTER 2021-06-18 08:57 | Outpatient (RCR) | payer BC, SELFPAY ==
--- NOTE | ~2021-06-18 | XR_ITS ---
EXAMINATION: XR CHEST CLINICAL INFORMATION: Preprocedure COMPARISON: None TECHNIQUE: 2 views of the chest were obtained. FINDINGS: No focal consolidation. No pneumothorax. Slight elevation the right hemidiaphragm, nonspecific. Trachea is midline. Cardiomediastinal silhouette is not enlarged. No large pleural effusion. Degenerative changes of the thoracolumbar spine. Soft tissues are unremarkable. XR/XR chest 2V IMPRESSION: No acute cardiopulmonary process.
[2021-07-12 09:41] LABS: MANUAL DIFF FLAG NO
[2021-07-12 10:01] LABS: Basophils Absolute Auto 0.1 X10*3/uL (0.0-0.2); Basophils Percent Auto 0.7 % (0-2); Eosinophils Absolute Auto 0.4 X10*3/uL (0.0-0.4); Eosinophils Percent Auto 4.3 % (0-4); Hemoglobin 14.2 g/dl (14.0-18.0); Imm Gran Abs Auto 0.02 X10*3/uL (0.00-0.03); Imm Gran Pct Auto 0.2 % (0.0-0.4); Lymphocytes Absolute Auto 2.2 X10*3/uL (1.2-4.9); Lymphocytes Percent Auto 22.9 % (20-40); Mean Corpuscular Hemoglobin 26.4 pg (27.0-33.0); Mean Corpuscular Volume 80.1 fL (80.0-98.0); Mean Platelet Volume 11.1 fL (9.4-12.4); Monocytes Absolute Auto 0.7 X10*3/uL (0.1-1.2); Neutrophils Absolute Auto 6.3 x10*3/uL (2.0-8.3); Neutrophils Percent Auto 64.9 % (45-73); Platelet Count 218 X10*3/uL (160-400); Red Blood Count 5.37 X10*6/uL (4.60-5.80); Red Cell Distribution Width 13.4 % (11.0-16.0); White Blood Count 9.7 X10*3/uL (4.8-10.8)
[2021-07-12 10:25] LABS: Estimated Average Glucose 203 mg/dL; Hemoglobin A1c % 8.7 %
[2021-07-12 11:03] LABS: Anion Gap 13 (12-20); Blood Urea Nitrogen 10 mg/dL (9-16); C Reactive Protein 0.17 mg/dL (< or = 0.50); Calcium 9.8 mg/dL (8.4-10.2); Carbon Dioxide 25 mmol/L (22-29); Chloride 106 mmol/L (96-108); Estimated Glomerular Filt Rate > 60; Glucose Random 130 mg/dL (60-115); Sodium 140 mmol/L (135-145)
[2021-07-12 14:41] LABS: Erythrocyte Sedimentation Rate 5 MM/HR (0-15)
== END 2021-11-02 10:46 | disposition home or self-care (01) ==
LOC: HO.WCC 08:57
PROVIDERS: Visit Provider Physician Assistant
DX: E11.621 Type 2 diabetes mellitus with foot ulcer (principal); L97.511 Non-pressure chronic ulcer of other part of right foot limited to breakdown of skin; E11.40 Type 2 diabetes mellitus with diabetic neuropathy, unspecified; T70.0XXD Otitic barotrauma, subsequent encounter; I10 Essential (primary) hypertension; Z87.891 Personal history of nicotine dependence; Z79.899 Other long term (current) drug therapy
CPT/HCPCS: 11042; 36415; 71046; 80048; 83036; 84134; 85025; 85652; 86140; 97597; 99183; 99212

== ENCOUNTER → 2021-06-25 11:10 | Outpatient (BNVA) | payer BC, SELFPAY | PROVIDERS: Visit Provider Internal Medicine ==